=== PATIENT | male | born 1970 | race African-American/Black ===

== ENCOUNTER 2023-01-29 12:14 | Emergency (ER) | payer SELFPAY ==
[2023-01-29 12:39] VITALS: BP 140/87
[2023-01-29 13:12] LABS: BASO% 0.4 % (0-3); EOS% 2.3 % (0-8); HEMATOCRIT 42.5 % (39.0-50.0); HEMOGLOBIN 13.3 g/dl (14.0-18.0); IMMATURE GRANULOCYTES 0.1 % (0.0-5.0); LYMPH% 28.4 % (15-41); MEAN CELL VOLUME 71.5 fL CALC (80.0-100.0); MEAN CORPUSCULAR HGB 22.4 pG CALC (26.0-32.0); MEAN CORPUSCULAR HGB CONC 31.3 g/dL CAL (32.0-36.0); MONO% 6.1 % (2-13); NEUT# 6.34 thou/uL (1.82-7.42); NEUT% 62.7 % (42-76); RED BLOOD COUNT 5.94 mill/uL (4.70-6.10); RED CELL DISTRI WIDTH 14.4 % (11.5-15.5)
[2023-01-29 13:35] LABS: ALKALINE PHOSPHATASE 117 u/l (38-126); ANION GAP 14 (6-22 (CALC)); BILIRUBIN, TOTAL 0.3 mg/dL (0.2-1.3); BUN 17 mg/dL (9-20); BUN/CREATININE RATIO 15 (12-20 (CALC)); C-REACTIVE PROTEIN < 0.5 mg/dL (0-0.9); CARBON DIOXIDE 24 mmol/l (22-30); CHLORIDE 100 mmol/l (95-108); CREATININE 1.1 mg/dL (0.7-1.3); GFR FOR AFR.AMER. > 60 ML/MIN (>=60 (CALC)); GFR OTHER RACES > 60 ML/MIN (>=60 (CALC)); POTASSIUM 4.9 mmol/l (3.5-5.1); SGOT/AST 23 u/l (17-59); SODIUM 133 mmol/l (137-146); TOTAL PROTEIN 7.1 g/dL (6.3-8.2)
[2023-01-29 14:14] VITALS: BP 144/81
[2023-01-29 14:30] VITALS: BP 142/119
[2023-01-29] MEDS ORDERED: NAPROXEN500 MG PO (14:47)
[2023-01-29] MEDS ORDERED: CYCLOBENZAPRINE10 MG PO (14:47)
[2023-01-29] MEDS ORDERED: METFORMIN HCL500 M1 PO (14:47)
[2023-01-29 15:23] VITALS: BP 119/70
== END 2023-01-29 15:24 | disposition home or self-care (01) | DRG 552 ==
LOC: ED 12:14
PROVIDERS: Nurse Practitioner
DX: M54.16 Radiculopathy, lumbar region (principal); E11.9 Type 2 diabetes mellitus without complications

== ENCOUNTER 2023-06-10 01:15 | Emergency (ER) | payer SELFPAY ==
[~2023-06-10 01:15] MED LIST: CYCLOBENZAPRINE10 MG PO; METFORMIN HCL500 M1 PO; NAPROXEN500 MG PO
== END 2023-06-10 01:36 | disposition left against medical advice (07) | DRG 951 ==
LOC: ED 01:15 → LWOBS 01:36
DX: Z53.21 Procedure and treatment not carried out due to patient leaving prior to being seen by health care provider (principal)